=== PATIENT | female | born 1990 | race Caucasian/White ===

== ENCOUNTER 2019-08-02 02:32 | Emergency (ER) | payer SELFPAY ==
[~2019-08-02] VITALS: Ht 154.9 cm; Wt 61.0 kg
[2019-08-02 04:19] VITALS: BP 122/75
== END 2019-08-02 04:19 | disposition home or self-care (01) ==
LOC: ED 02:32
DX: R10.13 Epigastric pain (principal); F41.9 Anxiety disorder, unspecified; F32.9 Major depressive disorder, single episode, unspecified